=== PATIENT | male | born 1995 | race Caucasian/White ===

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

== ENCOUNTER 2023-08-30 08:40 | Emergency (ER) | payer SELFPAY ==
[~2023-08-30] VITALS: Ht 180.3 cm; Wt 72.5 kg
[2023-08-30 09:05] LABS: Urine Bacteria None Seen /hpf (None Seen)
[2023-08-30 09:16] LABS: Urine Blood Negative /uL (Negative); Urine Clarity Clear (Clear); Urine Color Yellow (Yellow); Urine Mucus FEW (None Seen); Urine Protein, UAD TRACE (Negative); Urine Specific Gravity 1.027 (1.001-1.035); Urine Urobilinogen Normal (Negative); Urine WBC 1 /hpf (0 - 3)
[2023-08-30] MEDS: SODIUM CHLORIDE 0.9% 1,000 ML IVB ONE (09:34)
[2023-08-30 09:35] LABS: Basophils # (auto) 0 10 ^3/uL (0-0.2); Basophils % (auto) 0.4 % (0.0-2.0); Eosinophils # (auto) 0.1 10 ^3/uL (0-0.8); Hematocrit 47.2 % (41.0-53.0); Hemoglobin 16.4 g/dL (13.5-17.5); Lymphocytes # (auto) 1.1 10 ^3/uL (0.4-5.4); Lymphocytes % (auto) 10.6 % (10.0-50.0); Mean Corpuscular Hemoglobin 31.3 pg (28.0-32.0); Mean Corpuscular Hgb Conc. 34.7 g/dL (32.0-36.0); Mean Corpuscular Volume 90.3 fL (80.0-100.0); Monocytes # (auto) 0.5 10 ^3/uL (0-1.3); Neutrophils # (auto) 8.7 10 ^3/uL (1.6-8.6); Red Blood Cells 5.23 10^6/uL (4.5-5.90); Red Cell Distribution Width 12.5 % (11.8-14.3); White Blood Cell 10.5 10^3/uL (4.4-10.8)
[2023-08-30 09:45] LABS: INR 1.1 (0.9-1.15); Partial Thromboplastin Time 26.9 SEC (24.5-34.5); Prothrombin Time 11.6 sec (9.3-11.8)
[2023-08-30 10:20] LABS: Chloride 106 mmol/L (98-107); Potassium 4.4 mmol/L (3.5-5.1); Sodium 141 mmol/L (136-145)
[2023-08-30 10:21] LABS: Anion Gap 6 (5-15); Calcium 10.5 mg/dL (8.7-10.4); Carbon Dioxide 29 mmol/L (20-30)
[2023-08-30 10:26] LABS: BUN/Creatinine Ratio 16.2 (10.0-20.0); Blood Urea Nitrogen 18 mg/dL (9-23); Glucose 76 mg/dL (74-106)
[2023-08-30] MEDS: IOHEXOL 300 MG/ML 100ML BOTTLE IJ ONE ×2 (10:55→11:56)
[2023-08-30 13:25] VITALS: BP 111/72; PULSE 60; RESP 16; TEMP 97.9; O2SAT 95
== END 2023-08-30 13:27 | disposition home or self-care (01) ==
LOC: ER 08:40
DX: R10.31 Right lower quadrant pain (principal); F12.90 Cannabis use, unspecified, uncomplicated; F17.210 Nicotine dependence, cigarettes, uncomplicated; Z98.890 Other specified postprocedural states
CPT/HCPCS: 36415; 74177; 80048; 81001; 85025; 85610; 85730; 96360; 99285; J7030; Q9967